=== PATIENT | male | born 1955 | race Caucasian/White ===

== ENCOUNTER 2021-01-07 00:01 | Inpatient (IN) | payer OTHER ==
[2021-01-07] VITALS (13 sets, daily range): BP systolic 105–141; BP diastolic 74–105
[~2021-01-07] VITALS: Ht 170.2 cm; Wt 74.1 kg
[2021-01-07 00:44] LABS: ABSOLUTE NEUTROPHILS 7.7 thou/uL (1.4-8.2); BASOPHILS 0.2 % (0.0-2.0); HEMATOCRIT 47.7 % (42.0-52.0); HEMOGLOBIN 15.7 gm/dL (14.0-18.0); LYMPHOCYTES 2.6 % (24.0-44.0); MCH 29.4 pg (26.0-34.0); MCHC 32.8 g/dL (28.0-37.0); MCV 89.5 fL (80.0-100.0); MONOCYTES 9.7 % (1.0-8.0); PLATELET COUNT 196 thou/uL (150-400); POLYS 87.5 % (36.0-66.0); RBC 5.33 mil/uL (4.50-6.00); RDW 16.3 % (10.5-14.5); WBC 8.8 thou/uL (4.0-11.0)
[2021-01-07 00:56] LABS: CALCIUM 8.9 mg/dL (8.5-10.1); CREATININE 1.4 mg/dL (0.7-1.3); POTASSIUM 3.8 mmol/L (3.5-5.1)
[2021-01-07 01:05] LABS: ALBUMIN 4.1 g/dL (3.4-5.0); TOTAL BILIRUBIN 2.9 mg/dL (0.2-1.0); TOTAL PROTEIN 7.7 g/dL (6.4-8.2)
[2021-01-07 01:10] LABS: TROPONIN-I 1.07 ng/mL (<0.06)
[2021-01-07 01:10] LABS: APTT 27.3 Seconds (24.5-32.8); INR 1.36; PROTIME 14.6 Seconds (10.5-12.1)
--- NOTE | 2021-01-07 03:14 | NUR ---
PATIENT SAID HIS BIRTHDAY IS 1955 BUT HIS INSURANCE CARD IS 11/18/1954. PT HAS 2 ACCOUNTS. REGISTRATION HAS BEEN NOTIFIED.
[2021-01-07] MEDS ORDERED: IRON325 M1 PO (08:01)
[2021-01-07] MEDS ORDERED: COLACE100 MG PO (08:01)
[2021-01-07] MEDS ORDERED: VITAMIN B-12250 MCG PO (08:03)
[2021-01-07] MEDS ORDERED: REMERON15 M2 PO (08:05)
[2021-01-07] MEDS ORDERED: DULERA 100 MCG/13 GM INH (08:05)
[2021-01-07] MEDS ORDERED: MIRALAX119 GM PO (08:06)
[2021-01-07] MEDS ORDERED: PROTONIX40 M2 PO (08:06)
[2021-01-07] MEDS ORDERED: IPRAT-ALBUT 0.5-3 ML INH (08:07)
[2021-01-07] MEDS ORDERED: LIPITOR 20 MG T20 M1 PO (08:07)
[2021-01-07] MEDS ORDERED: METHOCARBAMOL500 M2 PO (08:08)
[2021-01-07] MEDS ORDERED: ENOXAPARIN60 MG/0.1 SUBQ (08:08)
[2021-01-07] MEDS ORDERED: ATENOLOL 25 MG25 M1 PO (08:09)
[2021-01-07] MEDS ORDERED: ASA81BEC PO (08:09)
[2021-01-07] MEDS ORDERED: MELATONIN10 M3 PO (08:10)
[2021-01-07] MEDS ORDERED: AMIODARONE HCL400 MG PO (08:11)
[2021-01-07] MEDS ORDERED: POTASSIUM20 PO (08:12)
[2021-01-07] MEDS ORDERED: TORSEMIDE20 MG PO (08:12)
--- NOTE | 2021-01-07 08:14 | NUR ---
PATIENT WAS A NEW PATIENT TO THE UNIT THIS SHIFT. HE ARRIVED VIA CART FROM THE ER AND WAS TRANSFERRED TO THE BED WITHOUT INCIDENT. PATIENT IS FULLY ALERT AND ORIENTED AND ABLE TO AID IN HIS ADMISSION AND CARE. PATIENT IS ON LOW LEVEL OXYGEN AND IS HAVING NO TROUBLES BREATHING EVIDENCED BY ASSESSMENT AND SPOT OXYGENATION CHECKS. PATIENTS PRIMARY CONCERN WAS PAIN IN LOWER LEGS AND CHEST PRESSURE. STAT EKG OBTAINED WITH FINDINGS RELAYED TO PROVIDER. PATIENT GIVEN PAIN MEDICATIONS WITH CARDIZEM GTT ORDERED FOR ACCELERATED ATRIAL FLUTTER TO GOOD EFFECT. NURSE TO COMPLETE PATIENTS ADMISSION AND RELAY PERTINENT INFORMATION TO ONCOMING NURSE AND STAFF.
--- NOTE | 2021-01-07 12:33 | 2DMMODE ---
[facility] [place] [place] [place] [address] 2 D/M-MODE ECHOCARDIOGRAM Name: SAUL LEA Room #: 214-P ADM IN M.R.#: [id number] Admission: 01/07/21 Attend Phys: Karina Pineda Discharge: Date of : 59 Report #: [id number] THIS REPORT FOR: cc: Charity Cutler,Charity Romero,German Epstein MD ~ APPROVED REPORT Study performed: 01/07/2021 09:25:20 EXAM: Comprehensive 2D, Doppler, and color-flow Echocardiogram Patient Location: Bedside Room #: 214 Status: routine BSA: 1.84 HR: 110 bpm BP: 115/86 mmHg Rhythm: Atrial Fibrillation Other Information Study Quality: Adequate Indications Short of breath, elevated troponin, Afib with RVR. Hx: Afib, ICD, COPD, cardiac arrest. 2D Dimensions IVSd: 8.99 (7-11mm) LVDd: 45.38 mm PWd: 10.27 (7-11mm) LVDs: 38.26 (25-40mm) Left Atrium: 44.39 (27-40mm) Aortic Root: 27.12 mm Volumes Left Atrial Volume (Systole) Single Plane 4CH: 51.03 mL Single Plane 2CH: 100.65 mL LA ESV Index: 42.00 mL/m2 Aortic Valve AoV Peak Tee.: 1.11 m/s AO Peak Gr.: 4.93 mmHg LVOT Max P.16 mmHg LVOT Max V: 0.54 m/s [facility] [place] [address] [place] [address] 2 D/M-MODE ECHOCARDIOGRAM Name: SAUL LEA Room #: 214-P ADM IN M.R.#: [id number] Admission: 01/07/21 Attend Phys: Karina Brambila Discharge: Date of : 59 Report #: [id number] Mitral Valve MV Decel. Time: 136.41 ms MV E Max Tee.: 1.17 m/s Tricuspid Valve TR Peak Tee.: 4.13 m/s RAP Estimate: 15.00 mmHg TR Peak Gr.: 68.30 mmHg PA Pressure: 83.00 mmHg Left Ventricle The left ventricle is normal size. There is normal left ventricular wall thickness. Left ventricular systolic function is moderate to severely decreased. LVEF is 30-35%. This study is not technically sufficient to allow evaluation of the LV diastolic function due to atrial fibrillation. Right Ventricle Right ventricle is dilated. Right ventricular systolic function is reduced. Device lead is present in the right ventricle. Atria Left atrium is moderately dilated. Right atrium is severely dilated. Aortic Valve The aortic valve is normal in structure. No aortic regurgitation is present. There is no aortic valvular stenosis. Mitral Valve The mitral valve is normal in structure. Mild mitral regurgitation. Tricuspid Valve Severe tricuspid regurgitation. Severe pulmonary hypertension with an estimated PAP of 68mmHg. Pulmonic Valve Pulmonic valve is not well visualized. Great Vessels Ascending aorta is not well visualized. IVC is dilated and collapses <50% with inspiration. Pericardium There is no pericardial effusion. [facility] [address] [place] [address] 2 D/M-MODE ECHOCARDIOGRAM Name: SAUL LEA Room #: 214-P [facility] IN .R.#: [id number] Admission: 01/07/21 Attend Phys: Karina Brambila Discharge: Date of : 59 Report #: [id number] <Conclusion> The left ventricle is normal size. There is normal left ventricular wall thickness. Left ventricular systolic function is moderate to severely decreased. Right ventricle is dilated. Device lead is present in the right ventricle. Right atrium is severely dilated. The aortic valve is normal in structure. Mild mitral regurgitation. Severe tricuspid regurgitation. Severe pulmonary hypertension with an estimated PAP of 68mmHg. <ELECTRONICALLY SIGNED> By: German Hou MD 01/07/21 1232 1232 31 German Hou MD /INF
--- NOTE | 2021-01-07 17:49 | NUR ---
Case opened to follow for dc planning. Pt is known to cm from previous admissions this year and a rehab stay on [facility] in August. The pt was admitted with CHF/pneumonia/nstemi. He is disabled and lives in an [facility] living apt at [facility] in [place]. He has a rwalker and home o2 at [address] [place] [address] from [facility] [place]. He had an RN coming out from [facility] until recently and reports he was not aware they were not going to come out anymore. He does not want to use them again. He also has a mental health cm Rachid Oneal [phone] Per U[place]es. Call [facility] and Rachid indicates he will talk with his supervisior regarding any additional supports they can give. He was also unaware that the rn was no longer coming out. Will have the unit cm call [facility] to find out why the stopped coming out. The pt was given the AD/DPOA paperwork and booklet for his consideration. He will ask for spiritual care if he wishes to complete it. The pt indicates his dtr Rubina is his emergency contact and that both dtrs live in [place] and " left him here". Rehab cm notes that dtrs have been frustrated with pt's ethol abuse. PT/OT evals are pending. Pt may benefit from rehab/snf or hh but [place]. Will follow.
--- NOTE | 2021-01-07 18:19 | NUR ---
ASSUMED CARE AT SHIFT CHANGE. PT A/O X 4, C/O CHEST TIGHT WITH DEEP BREATHS AND PAIN IN BLE- FEELING LIKE PINS AND NEEDLES. PT ANXIOUS AND REQUESTING PAIN MEDICATION FOR LEGS. RUBA PAGED X3 AND OBTAINED ORDER FOR PRN TRAMADOL. PT OBTAINED SOME RELIEF. CT CHEST TODAY, RESULTS IN CHART. PT WITH LABORED BREATHING POST CT SCAN, ALSO O2 SAT DROPPED TO 85% ON 5L. INCREASED TO 7L, THEN 8L PT SATTING 88-90% AT THIS TIME. RT AND DR BAUTISTA NOTIFIED. PT ON CARDIZEM GTT, TITRATED DOWN TO 5ML/HR AT THIS TIME. HR CONTROLLED. WILL CONT TO MONITOR AND FOLLOW POC.
[2021-01-07 21:15] LABS: BE(vivo) 0.4 mmol/L (-2 to +3); HCO3 24.8 mmol/L (22.0-26.0); PCO2 39.4 mmHg (35.0-45.0); PO2 50.5 mmHg (80.0-100.0); pH 7.417 (7.360-7.450); sO2 86.5 % (92.0-98.0)
[2021-01-08] VITALS (22 sets, daily range): BP systolic 108–127; BP diastolic 76–94
[2021-01-08 03:17] LABS: ALBUMIN 3.5 g/dL (3.4-5.0); CALCIUM 8.3 mg/dL (8.5-10.1); CREATININE 1.9 mg/dL (0.7-1.3); POTASSIUM 4.4 mmol/L (3.5-5.1)
--- NOTE | 2021-01-08 09:27 | EKG ---
[place] [address] [email or web address] [email or web address] [address] ELECTROCARDIOGRAM REPORT Name: SAUL LEA Room #: 214-P ADM IN M.R.#: [id number] Admission: 01/07/21 Attend Phys: Karina Pineda Discharge: Date of : 59 Report #: [id number] [facility] ED Test Date: 2021-01-07 Test Time: 00:36:39 Pat Name: SAUL LEA Department: Room: 214 Gender: M Orbitread Operator: : 1955 Requested By: Manjinder Oliveira Order Number: [id number] MD: Hema Akhtar Measurements Intervals [place] Rate: 114 P: [place]: QRS: -135 QRSD: 147 T: 28 QT: 362 QTc: 499 Interpretive Statements Atrial flutter with predominant 2:1 AV block Right bundle branch block No previous ECG available for comparison Electronically Signed On 01-08-2021 9:27:21 CDT by Hema Akhtar [email or web address] <ELECTRONICALLY SIGNED> By: Hema Akhtar MD, [facility] 01/08/21 0927 0036 0036 Hema Akhtar MD, FACC /EPI
--- NOTE | 2021-01-08 09:28 | EKG ---
[place] [address] [facility] [address] ELECTROCARDIOGRAM REPORT Name: SAUL LEA Room #: 214-P ADM IN M.R.#: [id number] Admission: 01/07/21 Attend Phys: Karina Pineda Discharge: Date of : 59 Report #: [id number] [facility] Test Date: 2021-01-07 Test Time: 04:24:38 Pat Name: SAUL LEA Department: Room: 214 P Gender: M Bioinformatics Technician: MADELEINE HAMPTON : 1955 Requested By: Sven Correa Order Number: [id number] MD: Hema Akhtar Measurements Intervals [place] Rate: 117 P: [place]: QRS: 228 QRSD: 142 T: 15 QT: 376 QTc: 525 Interpretive Statements Atrial flutter with predominant 2:1 AV block Occasional premature ventricular or aberrantly conducted supraventricular complexes Nonspecific intraventricular conduction delay Compared to ECG 01/07/2021 00:36:39 Right bundle-branch block no longer present Electronically Signed On 01-08-2021 9:28:29 CDT by Hema Akhtar [email or web address] <ELECTRONICALLY SIGNED> By: Hema Akhtar MD, [facility] 01/08/21 0928 0424 0424 Hema Akhtar MD, [facility] /EPI
[2021-01-08 11:38] LABS: BE(vivo) -2.8 mmol/L (-2 to +3); HCO3 22.7 mmol/L (22.0-26.0); sO2 82.1 % (92.0-98.0)
[2021-01-08 11:39] LABS: PO2 48.3 mmHg (80.0-100.0)
--- NOTE | 2021-01-08 12:13 | NUR ---
Pt arrived from on BiPAP - sat 92%, BP stable 115/83. IV team at bedside to place PICC, per cardiology hold diltiazem drip currently running.
--- NOTE | 2021-01-08 12:43 | NUR ---
PT PLACED ON HOLD PRIOR TO INITIATION OF P.T. EVAL DUE TO DECLINE IN MEDICAL STATUS W/SUBSEQUENT TX TO ICU. REQUEST NEW P.T. ORDERS WHEN APPROPRIATE.
--- NOTE | 2021-01-08 12:55 | NUR ---
A RIGHT #6F TRIPLE LUMEN CENTRAL LINE WAS PLACED PER HOSPITAL POLICY AFTER A BEDSIDE TIMEOUT WAS COMPLETED. RISKS FOR DVT, VESSEL DAMMAGE AND ARTERIAL CANNULATION WAS DISCUSSED AND HE VERBALIZED UNDERSTANDING. THE RIGHT JUGULAR VEIN WAS WIDLEY PATENT. THE 25CM LINE WAS ADVANCED TO 7CM EXTERNAL AND SECURED. A STAT CHEST XRAY WAS ORDERED FOR CONFIRMATION.
--- NOTE | 2021-01-08 13:01 | NUR ---
PATIENT TRANSFER TO ICU, WILL NEED NEW ORDERS WHEN APPROPRIATE FOR OT EVAL
--- NOTE | 2021-01-08 13:24 | NUR ---
PT ON 10L NC UPON BEDSIDE REPORT, SLIGHTLY TACHYPNEIC. PT DID NOT APPEAR TO BE IN ANY DISTRESS THOUGH HIS OXYGEN WAS INCREASED TO 12L NC DUE TO O2 SATURATION ON MONITOR. PT WAS ALSO EDUCATED ON BREATHING STRATEGIES AND FATIGUE. PT CONTINUED TO HAVE INCREASED WOB AND NONCARDIAC CHEST PAIN. PROVIDERS WERE CALLED AND A BIPAP WAS ORDERED. I ORDERED A CXR, 12 LEAD EKG, AND TROPONIN. PT WAS THEN TRANSFERED TO THE ICU FOR INCREASED LEVEL OF CARE. PT AFEBRILE, URINE OUTPUT WAS TEA COLORED WITH BLOOD, NO BM. CARDIZEM GTT WAS INFUSING. PT HAS BEEN THOUROUGHLY UPDATED AND EDUCATED ON PT CONDITION AND POC. PT NOT PROGRESSING TOWARDS POC.
--- NOTE | 2021-01-08 13:49 | EKG ---
[address] [address] ELECTROCARDIOGRAM REPORT Name: SAUL LEA Room #: 237-P ADM IN M.R.#: [id number] Admission: 01/07/21 Attend Phys: Karina Pineda Discharge: Date of : 59 Report #: [id number] [facility] Test Date: 2021-01-08 Test Time: 11:33:34 Pat Name: SAUL LEA Department: Room: 237 Gender: M Scale And Skip Car Operator: KIMBERLY : 1955 Requested By: Karina Pineda Order Number: [id number] MD: German Hou Measurements Intervals [place] Rate: 97 P: 257 [place]: 149 QRS: -103 QRSD: 155 T: QT: 438 QTc: 557 Interpretive Statements Atrial flutter with variable block RBBB and LAFB Nonspecific ST segmentT wave abnormalities Compared to ECG 01/07/2021 04:24:38 Left anterior fascicular block now present Ventricular premature complex(es) no longer present Intraventricular conduction delay no longer present Electronically Signed On 01-08-2021 13:49:13 CDT by German Hou [email or web address] <ELECTRONICALLY SIGNED> By: German Hou MD 01/08/21 1349 1133 1133 German Hou MD /EPI
--- NOTE | 2021-01-08 15:10 | NUR ---
Spoke with daughter Ave, stated pt is an alcoholic who called her drunk on Monday, and is frequently in the hospital. Her sister Rubina should be primary contact from now on, as Ave no longer wants to be contacted first. She stated "my dad does this frequently and we just dealt with a long hospital stay in July. I cannot fly down every time he does this but my sister will be coming this time." Ave is legal DPOA and requests pt be made a DNR as he was his last admission. Will follow up with .
--- NOTE | 2021-01-08 16:39 | NUR ---
Spoke with behavioral health outside energy sales representatives from outpatient resource - per keycase assembler pt unable to safely go back to his apartment - possibly rehab and assisted living facility. Between his Etoh use and medication noncompliance he is not safe to return to apartment. Will follow up with .
[2021-01-08 19:43] LABS: BE(vivo) -4.2 mmol/L (-2 to +3); HCO3 20.8 mmol/L (22.0-26.0); PCO2 38.5 mmHg (35.0-45.0); pH 7.351 (7.360-7.450); sO2 80.3 % (92.0-98.0)
[2021-01-08 19:44] LABS: PO2 46.2 mmHg (80.0-100.0)
--- NOTE | 2021-01-08 21:14 | NUR ---
This RN spoke to Dr Nieves at 1999 regarding patients critical ABG, desire not to be intubated and code status. Orders received, will continue to lloyd.
[2021-01-09] VITALS (37 sets, daily range): BP systolic 94–124; BP diastolic 71–88
--- NOTE | 2021-01-09 05:58 | NUR ---
Notified Dr Nieves of minimal urine output following lasix given late in the night.No orders received.
--- NOTE | 2021-01-09 08:00 | NUR ---
Pt assessment completed see [facility]. Pt equesting water and food. Takem off the Bipap to swab mouth and give water. Unable to eat reason explained to him. will continue to monitor.
--- NOTE | 2021-01-09 09:00 | NUR ---
Lizbeth Johnson here to see orders given. Albumin and Lasix given. Royal urometer changed. Hob elevated and pt still looks very cyanotic. Pt awake and Oriented. Cont to monitor.
[2021-01-09 10:10] LABS: HEMATOCRIT 48.8 % (42.0-52.0); HEMOGLOBIN 15.8 gm/dL (14.0-18.0); MCHC 32.5 g/dL (28.0-37.0); MCV 89.3 fL (80.0-100.0); RBC 5.47 mil/uL (4.50-6.00); RDW 16.5 % (10.5-14.5); WBC 7.5 thou/uL (4.0-11.0)
[2021-01-09 10:19] LABS: CALCIUM 8.2 mg/dL (8.5-10.1); POTASSIUM 4.8 mmol/L (3.5-5.1)
[2021-01-09 10:29] LABS: CREATININE 3.6 mg/dL (0.7-1.3)
--- NOTE | 2021-01-09 15:53 | NUR ---
Report givento oncoming nurse. will cont to monitor.
--- NOTE | 2021-01-09 18:25 | NUR ---
PT IS NOT PROGRESSING TOWARDS DISCHARGE AT THIS TIME, RN ASSUMED CARE OF THIS PATIENT AROUND 1500, AT THE TIME OF ARRIVAL PT SPO2 AROUND 50s, EXTREMETIES COLD, TEMP 97.7, NOSE IS BLUE, SX OF HYPOXIA. UPON READING THE NOTES PT IS DNR STATUS AND WHEN ASKED, PT STATED THAT HE DOES NOT WISH TO BE INTUBATED, THIS WAS CLEARLY STATED BY THE PATIENT IN FRONT OF THREE RNs. RN REACHED OUT TO SOLID SURFACE FABRICATOR NET DEVELOPER CONTRACT REGARDING CURRENT PRESENTATION, ORDERS WERE RECEIVED, TELEPHONE READ BACK, CONSULT TO GERONTOLOGIST SENT OUT, AWAITING CALL BACK FROM APPROPERIATE SERVICES AT THIS TIME. RN CONTINUING TO MONITOR. PT DOES NOT SEEM TO BE IN ACTIVE DISTRESS, ONLY THING HE ASKS FOR AT THIS TIME IS WATER, WHICH IS INTERMITTENTLY GIVEN.
--- NOTE | 2021-01-09 21:22 | NUR ---
Patient awake and able to have a conversation during assessment. States he is having stomach pain. Zofran given. Patient aware of situation and is able to make needs known. Follows all commands and moves all extremities. Patient is wanting drinks of water. Patient chart states he is a DNR and progress notes states that the physician spoke with the 'daughters' and they did not want patient on the vent. At shift change assessment patient O2 sats are in the 60's. Good wave form on O2 sat monitor. Patient extremities, lips and nose are cyanotic. Blood pressure is adequate and HR is in the 90's. Patient is dosing on/off and watching the football game. 2030- Patient's daughter, Ave, called asking for an update on her father's condition. Ave states that she is the DPOA. This cannot be verified in the chart, but she is the contact that is listed on all his previous admissions. I discussed with her that he was not oxygenating well at all and he won't be able to maintain with this level of oxygen for much longer. I was verifying his code status and told her that her was a DNR and that the progress note from [facility] states that he spoke with the 'daughters' and they did not want to put the patient on the vent. Ave strongly denies this. She said that she is the DPOA and she did not give permission to make her father a DNR and that she does want him on the vent if he needs it. I set up and I Pad for her to see and talk to her father. They talked and she asked her father, the patient, if he would keep trying for her and try the vent. Patient answered yes that her would try the vent. 2100- Called Dr. Nieves with this update. Gave him Ave's number and he stated that he would call her and then call me back with directions on how to proceed.
--- NOTE | 2021-01-10 01:52 | NUR ---
No call back from Dr. Nieves. Patient continues to be a DNR and on the Bipap. Patient vital signs stable except for O2 sat, reading 58-60%. Pt occ. asking for water. Taking drinks with a straw without difficulty. Patient repositioned and laid back to rest. 0005- Patient sat up in bed threw off his covers. Went to bedside and asked what was wrong. Pt. stated he couldn't breathe. Patient seemed paniced. Gave him a drink and then called Dr. Nieves. 1 mg ativan given and ABG ordered. 0010- No pleath noted on monitor and heart rhythm was a wide complex. No pulse noted. No respiratory effort noted. Stayed with the patient until his rhythm appeared asystole. 0016- pronounced. 0018- Called Ave, the daughter. No answer, left message. Called Germaine, the other daughter. She answered and was notified of the patient's . Germaine stated that she would try to get ahold of Ave.Gave the number to the unit for them to call with any questions and with the home information.
--- NOTE | 2021-01-12 09:14 | NUR ---
patsy guillermo called from [facility] to see why no appointments and found out his dcp because they try and help him out in the community. passed on that he had and going to need to call his family. Oh he has had it hard, sorry to hear and well call his daughter. patsy number [phone].
== END 2021-01-10 00:16 | DRG 291 ==
LOC: ER 00:01 → EROBS 02:07 → 2N 02:07 → ICU 01-08 12:10
PROVIDERS: Emergency Medicine; Nurse Practitioner; Pediatrics; ADMIT Hospitalist; ATTEND Hospitalist
DX: I13.0 Hypertensive heart and chronic kidney disease with heart failure and stage 1 through stage 4 chronic kidney disease, or unspecified chronic kidney disease (principal); J18.9 Pneumonia, unspecified organism; I50.43 Acute on chronic combined systolic (congestive) and diastolic (congestive) heart failure; J96.21 Acute and chronic respiratory failure with hypoxia; I48.92 Unspecified atrial flutter; E44.0 Moderate protein-calorie malnutrition; J44.0 Chronic obstructive pulmonary disease with (acute) lower respiratory infection; J44.1 Chronic obstructive pulmonary disease with (acute) exacerbation; Q21.1 Atrial septal defect; I42.8 Other cardiomyopathies; Z66 Do not resuscitate; I48.91 Unspecified atrial fibrillation; N18.9 Chronic kidney disease, unspecified; Z20.822 Contact with and (suspected) exposure to COVID-19; I25.10 Atherosclerotic heart disease of native coronary artery without angina pectoris; F41.9 Anxiety disorder, unspecified; F32.9 Major depressive disorder, single episode, unspecified; E78.00 Pure hypercholesterolemia, unspecified; K44.9 Diaphragmatic hernia without obstruction or gangrene; I27.20 Pulmonary hypertension, unspecified; Z88.6 Allergy status to analgesic agent; Z88.2 Allergy status to sulfonamides; Z99.81 Dependence on supplemental oxygen; Z86.718 Personal history of other venous thrombosis and embolism; Z86.711 Personal history of pulmonary embolism; Z86.74 Personal history of sudden cardiac arrest; I25.2 Old myocardial infarction; Z87.891 Personal history of nicotine dependence; Z95.810 Presence of automatic (implantable) cardiac defibrillator; Z68.25 Body mass index [BMI] 25.0-25.9, adult
CPT/HCPCS: 10081; 10203